=== PATIENT | female | born 1990 | race Caucasian/White ===

== ENCOUNTER → 2017-12-23 | Outpatient (CLI) | payer OTHER ==
[~2017-12-23] MED LIST: IBUP800 PO; LABE100 PO; NAPR500; OXYACE5T PO; Percocet 5-3251 EACH
[2017-12-24 13:33] LABS: HPV Genotype 16 Not Detected (NOTDET); HPV Genotype 18 Not Detected (NOTDET)
[2018-01-03 13:05] LABS: HPV High Risk Other Not Detected (NOTDET)
== END ==
LOC: LAB 11:45
PROVIDERS: Obstetrics & Gynecology
DX: R87.612 Low grade squamous intraepithelial lesion on cytologic smear of cervix (LGSIL) (principal)
CPT/HCPCS: 87624; 88142

== ENCOUNTER 2023-05-14 06:04 | Day surgery (SDC) | payer OTHER ==
[~2023-05-14] VITALS: Ht 167.6 cm; Wt 91.0 kg
--- NOTE | 2023-05-14 07:34 | NUR ---
[facility]14[facility] [facility] [address] [facility] HAS A TOE RING ON R FOOT SECOND TOE THAT CANNOT BE REMOVED. PER DR QUEZADA OK TO PROCEED.
--- NOTE | 2023-05-14 08:07 | NUR ---
05/14/23 0807 Lenora Marquez PT SUPINE LEFT LEG IN CRUZ AND NEPHEW ARTHROSCOPY LEG PATRICIO, RIGHT LEG ON FOAM SUPPORT AND LEG OF BED IN DOWN POSITION.
--- NOTE | 2023-05-14 09:27 | NUR ---
05/14/23 0927 Tequila Bond PT OPTED TO STAY IN BED IT IS MORE COMFORTABLE FOR HER LEG. LISTENED TO PTS LUNGS TO CONFIRM THEY WERE CLEAR BEFORE GIVING HER CRACKERS AND A DRINK.
[2023-05-14 09:48] VITALS: BP 113/65
== END 2023-05-14 10:35 | disposition home or self-care (01) ==
LOC: ORSCSDS 06:04
PROVIDERS: Orthopaedic Surgery
PROC: 0SQD4ZZ Repair Left Knee Joint, Percutaneous Endoscopic Approach (ICD-10-PCS; 2023-05-14)
PROC: 0SQD4ZZ Repair Left Knee Joint, Percutaneous Endoscopic Approach (ICD-10-PCS; principal; 2023-05-14 07:30)
DX: S83.232A Complex tear of medial meniscus, current injury, left knee, initial encounter (principal); Z87.891 Personal history of nicotine dependence; M17.9 Osteoarthritis of knee, unspecified
CPT/HCPCS: A9270; C1713; J0171; J0690; J1100; J1885; J2250; J2405; J2704; J2795; J3010; J7120

== ENCOUNTER 2024-09-28 16:03 | Emergency (ER) | payer OTHER ==
[~2024-09-28] VITALS: Ht 165.1 cm; Wt 93.9 kg
[2024-09-28 16:06] VITALS: BP 153/103
[2024-09-28 16:37] LABS: BASOPHILS ABSOLUTE AUTO 0.05 K/mm3 (0.00-0.23); BASOPHILS PERCENT AUTO 1 % (0-2); EOSINOPHILS PERCENT AUTO 3 % (0-6); Hematocrit 38.5 % (33.0-51.0); Hemoglobin 13.1 g/dL (11.5-16.0); IMMATURE GRAN ABSOLUTE AUTO 0.02 K/mm3 (0.00-0.10); IMMATURE GRAN PERCENT AUTO 0 % (0-1); LYMPHOCYTES ABSOLUTE AUTO 2.26 K/mm3 (0.84-5.20); LYMPHOCYTES PERCENT AUTO 31 % (21-46); MONOCYTES ABSOLUTE AUTO 0.61 K/mm3 (0.16-1.47); MONOCYTES PERCENT AUTO 8 % (4-13); Mean Corpuscular HGB 31.3 pg (26.0-34.0); Mean Corpuscular Volume 92 fL (80-100); Mean Platelet Volume 10.5 fL (9.1-12.4); NEUTROPHILS ABSOLUTE AUTO 4.28 K/mm3 (1.96-9.15); NEUTROPHILS PERCENT AUTO 58 % (41-73); Platelet Count 237 K/mm3 (150-400); RDW Coefficient Variation 13.6 % (11.7-14.2); RDW Standard Deviation 46.2 fL (35.1-46.3); Red Blood Cell Count 4.19 M/mm3 (3.80-5.20); White Blood Cell Count 7.42 K/mm3 (4.00-11.30)
[2024-09-28 17:03] LABS: Albumin, Blood 3.7 g/dL (3.4-5.0); Albumin/Globulin Ratio 1.1 (0.8-1.8); Bilirubin, Total 0.5 mg/dL (0.1-1.0); Bun/Creatinine Ratio 14.5 (12.0-20.0); Calcium, Blood 8.9 mg/dL (8.5-10.1); Creatinine, Blood 0.62 mg/dL (0.40-1.00); Globulin, Blood 3.3 g/dL (2.2-4.0); Potassium, Blood 3.5 mmol/L (3.5-5.5)
== END 2024-09-28 18:54 | disposition home or self-care (01) ==
LOC: ER 16:03
PROVIDERS: Physician Assistant
DX: K21.00 Gastro-esophageal reflux disease with esophagitis, without bleeding (principal); Z87.891 Personal history of nicotine dependence; Z88.5 Allergy status to narcotic agent
CPT/HCPCS: 71046; 80053; 83690; 84484; 85025; 93005; 93010; 99285-25